=== PATIENT | male | born 1930 | race Caucasian/White ===

== ENCOUNTER 2018-10-28 17:06 | Emergency (ER) | payer MEDICARE, OTHER ==
[~2018-10-28] VITALS: Ht 172.7 cm; Wt 70.0 kg
--- NOTE | 2018-10-28 17:38 | NUR ---
REPORT FROM JUAN A TOLEDO. [place] LAYING [place], [facility] NOTED. FAMILY REPORTS FREQUENT FALLS X SEVERAL WEEKS, WORSENING TODAY. 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 PT NON-VERBAL WITH STAFF, MAKES EYE CONTACT BUT DOES NOT FOLLOW COMMANDS. AND DAUGHTER AT BEDSIDE. PT CHANGED TO GOWN. NO OBVIOUS DEFORMITY NOTED OVER R SHOULDER. BANDAGES IN PLACE. +BLOOD THINNERS FOR HX OF AFIB/AFLUTTER
[2018-10-28 17:48] LABS: CULTURE INDICATED? YES; MICROSCOPIC INDICATED
[2018-10-28] MEDS ORDERED: SODIUM CHLORIDE FLUSH 10ML SYR IVF ONE (18:00)
[2018-10-28 18:36] LABS: BASOPHILS # (AUTO) 0.02 x10^3/uL (0-0.1); BASOPHILS % (AUTO) 0 % (0-1); EOSINOPHILS % (AUTO) 1 % (1-7); LYMPHOCYTES # (AUTO) 0.75 x10^3/uL (1-3.4); LYMPHOCYTES % (AUTO) 8 % (22-44); MD NO; MEAN CORPUSCULAR HEMOGLOBIN 32.3 pg (27.5-34.5); MEAN CORPUSCULAR HGB CONC 33.5 g/dL (33.2-36.2); MEAN CORPUSCULAR VOLUME 96.4 fL (81-97); MEAN PLATELET VOLUME 7.7 fL (7.4-10.4); MONOCYTES # (AUTO) 0.94 x10^3/uL (0.2-0.8); MONOCYTES % (AUTO) 10 % (2-9); NEUTROPHILS # (AUTO) 7.68 x10^3/uL (1.8-6.8); NEUTROPHILS % (AUTO) 81 % (42-75); PLATELET COUNT 176 x10^3/uL (130-400); RED BLOOD COUNT 4.86 x10^6/uL (4.38-5.82); RED CELL DISTRIBUTION WIDTH 15.8 % (9.4-14.8)
--- NOTE | 2018-10-28 18:45 | NUR ---
PT RESTING IN GURNEY, [place] NOTED. SO AT BEDSIDE. BP/SPO2/ECG MONITORING IN PLACE.
[2018-10-28 18:49] LABS: ALBUMIN 3.3 g/dL (3.4-5.0); ANION GAP 5 mmol/L (5-15); CHLORIDE 114 mmol/L (98-107); CREATININE 1.02 mg/dL (0.7-1.3)
[2018-10-28 18:54] LABS: TROPONIN I < 0.015 ng/mL (0.000-0.045)
--- NOTE | 2018-10-28 19:17 | NUR ---
CHART UP FOR RECHECK
--- NOTE | 2018-10-28 19:30 | NUR ---
PT STANDING, UNSTEADILY AT BESIDE, STATING "I'M GOING HOME, THIS IS A WASTE OF TIME". PT DC'D OWN IV, TIP INTACT. PT ASSISTED BACK TO [place] DAN APPLIED/BLEEDING CONTROLED. LINENS CHANGED. ERP AT BEDSIDE FOR RE-EVAL. POC IS ADMIT.
[2018-10-28] MEDS ORDERED: MEMA5TAB PO (19:35)
[2018-10-28] MEDS ORDERED: MELO7.5T31 PO (19:35)
[2018-10-28] MEDS ORDERED: LACT1TAB13 PO (19:35)
[2018-10-28] MEDS ORDERED: WARF1TAB PO (19:35)
[2018-10-28] MEDS ORDERED: LAMO25TA52 PO (19:35)
[2018-10-28] MEDS ORDERED: TAMS-11 PO (19:35)
[2018-10-28] MEDS ORDERED: DONE5TAB14 PO (19:35)
[2018-10-28] MEDS ORDERED: FINA1TAB16 PO (19:35)
[2018-10-28] MEDS ORDERED: METO200T47 PO (19:35)
--- NOTE | 2018-10-28 20:11 | NUR ---
PT TO BE ADMITTED, HOWEVER, INSURANCE IS [place]. TP RN AWARE. PT TO BE TRANSFERRED TO [facility]. THIS RN ATTEMPTED TO CALL PHONE NUMBER ON FILE IN ATTEMPT TO CONTACT WHO TOOK GRANDDAUGHTER HOME. VS LEFT.
[2018-10-28 20:17] LABS: INTERNATIONAL NORMALIZED RATIO 2.25 (0.93-1.1); PROTHROMBIN TIME 22.9 Seconds (9.6-11.5)
[2018-10-28 20:38] VITALS: BP 177/75
--- NOTE | 2018-10-28 20:39 | NUR ---
PIV ACCESS ESTABLISHED. PT UPDATED TO POC AND DEMONSTRATES UNDERSTANDING. , MARTHA, CONTACTED AT AND GAVE CONSENT FOR TRANSFER TO [facility].
--- NOTE | 2018-10-28 21:20 | NUR ---
REPORT TO ELINA Soni RN. AWAITING [facility] TRANSFER
== END 2018-10-28 21:26 | disposition short-term general hospital (02) ==
LOC: ED 19:39
DX: S40.011A Contusion of right shoulder, initial encounter (principal); R53.1 Weakness; I48.91 Unspecified atrial fibrillation; F03.90 Unspecified dementia, unspecified severity, without behavioral disturbance, psychotic disturbance, mood disturbance, and anxiety; W19.XXXA Unspecified fall, initial encounter; Y93.89 Activity, other specified; Y92.009 Unspecified place in unspecified non-institutional (private) residence as the place of occurrence of the external cause; Y99.8 Other external cause status
CPT/HCPCS: 36415; 71045; 80048; 81001; 82040; 84484; 85025; 85610; 87086; 93005; 99284